=== PATIENT | female | born 1945 | race Caucasian/White ===

== ENCOUNTER 2022-11-20 08:43 | Day surgery (SDC) | payer MEDICARE ==
[2022-11-17 15:12] LABS: BASOPHILS % (AUTO) 0.3 % (0-1); EOSINOPHILS # (AUTO) 0.1 X10'3 (0-0.9); EOSINOPHILS % (AUTO) 1.5 % (0-6); LYMPHOCYTES % (AUTO) 39.7 % (21-51); MEAN CORPUSCULAR HGB CONC 32.7 g/dL (33.0-36.5); MEAN CORPUSCULAR VOLUME 88.7 FL (78-98); MONOCYTES # (AUTO) 0.5 X10'3 (0-0.9); MONOCYTES % (AUTO) 7.2 % (2-12); NEUTROPHILS # (AUTO) 3.9 X10'3 (1.8-7.7); NEUTROPHILS % (AUTO) 51.3 % (42-75); PRE OP HEMATOCRIT 40.9 % (35.0-45.0); PRE OP HEMOGLOBIN 13.4 g/dL (12.0-16.0); PRE OP PLATELET COUNT 188 X10'3 (140-440); RED BLOOD COUNT 4.61 X10'6 (4.20-5.60); RED CELL DISTRIBUTION WIDTH 14.4 % (11.5-14.5)
[2022-11-17 15:26] LABS: ALBUMIN 3.7 G/DL (3.4-5.0); ALBUMIN/GLOBULIN RATIO 1.2 (1.1-1.5); ALKALINE PHOSPHATASE 83 IU/L (46-116); BLOOD UREA NITROGEN 15 MG/DL (7-18); BUN/CREATININE RATIO 14.7 (10.0-20.0); CALCIUM 9.2 MG/DL (8.5-10.1); CHLORIDE 105 MMOL/L (99-107); CREATININE 1.02 MG/DL (0.40-0.90); PRE OP ALT 25 U/L (30-65); PRE OP ANION GAP 9 (8-16); PRE OP AST 19 U/L (10-37); PRE OP BILIRUB, TOTAL 0.6 MG/DL (0.0-1.0); PRE OP GLUCOSE 91 MG/DL (70-104); PRE OP POTASSIUM 4.1 MMOL/L (3.4-5.1); PRE OP SODIUM 141 MMOL/L (135-145); TOTAL CARBON DIOXIDE 27.3 MMOL/L (24-32); TOTAL PROTEIN 6.8 G/DL (6.4-8.2); eGFR 52 ML/MIN
[~2022-11-20] VITALS: Ht 160 cm; Wt 67.6 kg
[2022-11-20] VITALS (10 sets, daily range): BP systolic 126–170; BP diastolic 40–63
[~2022-11-20 08:43] MED LIST: ATOR10TA70 PO; HYDR25TA5 PO; LEVO75TA7 PO; LIOT5TAB10 PO; LOSA50TA64 PO; MELO-100 PO; cefazolin 2gm/D5W 100mL 100 ML IV ONE; famotidine 20mg tablet PO ONE; ringers solution, lacted 1,000 ML IV SCH
[2022-11-20] MEDS ORDERED: hydrALAZINE 20mg/ml inj. IV PRN (09:05)
[2022-11-20] MEDS ORDERED: ondansetron/PF 4mg/2ml inj IV PRN (09:05)
[2022-11-20] MEDS ORDERED: ringers solution, lacted 1,000 ML IV SCH (09:05)
[2022-11-20] MEDS ORDERED: labetalol 20mg/4ml (5mg/ml) syringe IV PRN (09:05)
[2022-11-20] MEDS ORDERED: morphine 2 MG/ML inj. syringe IV PRN (09:05)
[2022-11-20] MEDS ORDERED: morphine 4 MG/ML inj SYRINge IV PRN (09:05)
[2022-11-20] MEDS ORDERED: polyvinyl alcohol ophthalmic drops 15ml bottle ONE (10:59)
[2022-11-20] MEDS ORDERED: LIDOcaine 1% W/epiNEPHrine 1:100,000 20ml vial ONE (10:59)
[2022-11-20] MEDS ORDERED: TETRACAINE 0.5% 4 ML OPHTHALMIC DROPS ONE (11:00)
[2022-11-20] MEDS ORDERED: midazolam 1 mg/ML 2ml injection ONE (11:04)
[2022-11-20] MEDS ORDERED: LIDOcaine 2% (20mg/ml) 5ml vial ONE (11:04)
[2022-11-20] MEDS ORDERED: propofol inj 20 ML IV ONE (11:04)
[2022-11-20] MEDS ORDERED: flumazenil 0.1 mg/ml inj. IV ONE (11:34)
--- NOTE | 2022-11-20 11:56 | NUR ---
Received from OR via [facility], accompanied by Anesthesiologist VICENTE and report given by Anesthesiolgist. PT REPSPONDS TO VERBAL STIMULI. EYE PATCHES IN PLACE BILATERALLY, DENIES PAIN AT THIS TIME; WILL CONTINUE TO MONITOR. IV 20 GUAGE INTACT TO L WRIST. SAO2>92 ON RA. Addendum: 11/20/22 at 1226 by Catalino Aguilar RN Amended: Links added.
--- NOTE | 2022-11-20 13:06 | NUR ---
PATIENT GIVEN ALL DC INSTRUCTIONS AND UNDERSTOOD ALL. ALL QUESTIONS ANSWERED AND VSS AT THIS TIME. PATIENTS SPOUSE ARRIVED AND PICKED UP PATIENT WITHOUT INCIDENT. PATIENT GIVEN HER OINTMENT, DRESSED WITH ASSIST AND TOOK ALL BELONGINGS HOME.. VSS. ABLE TO TRANSFER AND WALK WITHOUT ISSUE. Addendum: 11/20/22 at 1343 by Stuart Springer RN, RN Amended: Links added.
== END 2022-11-20 13:06 | disposition home or self-care (01) ==
LOC: PAS 08:43
PROVIDERS: ATTEND Specialist
DX: H02.831 Dermatochalasis of right upper eyelid (principal); H02.834 Dermatochalasis of left upper eyelid; I10 Essential (primary) hypertension; E78.00 Pure hypercholesterolemia, unspecified; E03.9 Hypothyroidism, unspecified; Z79.899 Other long term (current) drug therapy; Z87.891 Personal history of nicotine dependence; Z72.89 Other problems related to lifestyle
CPT/HCPCS: 15823; 36415; 80053; 82948; 85025; A6402; J0690; J2250; J2704; J3490; J7030; J7120; Z7506; Z7512; A4215; A4618; A6410; A6449; A7000